=== PATIENT | female | born 1960 | race Two or more races ===

== ENCOUNTER 2019-11-25 07:52 | Inpatient (IN) | payer OTHER ==
[~2019-11-25] VITALS: Ht 157.5 cm; Wt 71.2 kg
[~2019-11-25 07:52] MED LIST: BLOO-129 IN; CLON2TAB11 PO; HUM10VIA SQ; HYDR-4354 PO; HYDR25TA4 PO; QUET300T2 PO; SIMV-49 PO
--- NOTE | 2019-11-25 08:00 | NUR ---
PT [id number] FRM SCHVN C/O ABDOMINAL PAIN W/ N/V/D SINCE LAST NIGHT. PT IS AAOX4, NOT IN RESPIRATORY DISTRESS, HOOKED TO MONITOR, KEPT RESTED AND COMFORTABLE, WILL CONTINUE TO MONITOR.
[2019-11-25] MEDS ORDERED: KETOROLAC TROMETHAMINE 15 MG/ML VIAL ONE (08:12)
[2019-11-25] MEDS ORDERED: FAMOTIDINE/PF INJ 20 MG/2 ML VIAL IV ONE ×2 (08:12→08:30)
[2019-11-25] MEDS ORDERED: ONDANSETRON HCL/PF 4 MG/2 ML VIAL ONE (08:12)
--- NOTE | 2019-11-25 08:15 | NUR ---
SEEN AND EXAMINED BY DR. NY.
[2019-11-25] MEDS ORDERED: ONDANSETRON HCL/PF 4 MG/2 ML VIAL IVP ONE (08:30)
[2019-11-25] MEDS ORDERED: IV NS 0.9% 1,000 ML BAG IV ONE ×2 (08:30→10:30)
[2019-11-25] MEDS ORDERED: KETOROLAC TROMETHAMINE INJ 30 MG/ML VIAL IV ONE (08:30)
--- NOTE | 2019-11-25 08:30 | NUR ---
BLOOD DRAWNED AND SENT TO LAB.
[2019-11-25 08:44] LABS: BASOPHILS # (AUTO) 0.1 /CMM (0.0-0.2); BASOPHILS % (AUTO) 0.3 % (0.0-2.0); HEMATOCRIT 37 % (33-45); HEMOGLOBIN 12.4 g/dL (11.5-14.8); LYMPHOCYTES # (AUTO) 0.6 /CMM (0.8-4.8); LYMPHOCYTES % (AUTO) 3.5 % (20.0-44.0); MEAN CORPUSCULAR HGB CONC 34 g/dl (31.0-36.0); MEAN CORPUSCULAR VOLUME 84 fL (82-100); MONOCYTES # (AUTO) 1.3 /CMM (0.1-1.30); MONOCYTES % (AUTO) 7.5 % (2.0-12.0); NEUTROPHILS # (AUTO) 15.9 /CMM (1.8-8.9); NEUTROPHILS % (AUTO) 88.7 % (43.0-81.0); PLATELET COUNT (AUTO) 173 /CMM (150-450); WHITE BLOOD COUNT (AUTO) 17.9 K/uL (4.3-11.0)
[2019-11-25 08:48] LABS: CALCIUM, SERUM 8.6 mg/dL (8.5-10.1); CREATININE 1.7 mg/dL (0.6-1.3); POTASSIUM 3.5 mmol/L (3.5-5.1)
[2019-11-25 08:55] LABS: ALBUMIN 3.2 g/dL (3.4-5.0); BILIRUBIN,DIRECT 0.2 mg/dL (0.0-0.2); BILIRUBIN,TOTAL 1.2 mg/dL (0.2-1.0); TOTAL PROTEIN, SERUM 7.1 g/dL (6.4-8.2)
--- NOTE | 2019-11-25 08:58 | NUR ---
URINAL GIVEN BUT PT UNABLE TO PROVIDE URINE SPECIMEN THIS TIME.
--- NOTE | 2019-11-25 09:08 | NUR ---
URINE SPECIMEN COLLECTED AND SENT TO LAB.
[2019-11-25 09:16] LABS: APPEARANCE,URINE Clear (CLEAR); BILIRUBIN,URINE Negative (NEGATIVE); BLOOD, URINE Moderate Ery/uL (NEGATIVE); COLOR,URINE Yellow (YELLOW); KETONES,URINE Trace (NEGATIVE); LEUKOCYTE ESTERASE ,URINE Small (NEGATIVE); NITRITE, URINE Negative (NEGATIVE); PROTEIN,URINE 100 mg/dl (NEGATIVE); UGLUCOSE Negative (NEGATIVE); UROBILINOGEN,URINE 0.2 EU/dL (0.2)
[2019-11-25 09:18] LABS: BACTERIA,URINE Few /HPF (None Seen); SQUAMOUS EPITHELIAL CELL,UR Few /HPF (None Seen); URINE AMORPHOUS PHOSPHATES Few /HPF (None Seen)
[2019-11-25] MEDS ORDERED: CEFTRIAXONE 1GM BAG (ER ONLY) 50 ML IV ONE (09:23)
[2019-11-25] MEDS ORDERED: CEFTRIAXONE 1GM BAG (ER ONLY) 1 GM/50 ML PIGGYBACK IV ONE (09:30)
--- NOTE | 2019-11-25 09:40 | NUR ---
CALLED CALL THE [employer] [facility] WILL CALL US BACK WITH AN ETA.
--- NOTE | 2019-11-25 10:01 | NUR ---
SPOKED TO STACY ROBISON OF [facility] TO SEND BACK PT.
--- NOTE | 2019-11-25 10:33 | NUR ---
PT HAS EPISODE OF LOW BP AROUND 80S DR. NY AWARE.
--- NOTE | 2019-11-25 10:36 | NUR ---
PRODUCT LEAD AT BEDSIDE FOR XRAY.
[2019-11-25] MEDS ORDERED: LISI-603 PO (10:42)
[2019-11-25] MEDS ORDERED: TRAZ-182 PO (10:42)
[2019-11-25] MEDS ORDERED: QUET25TA PO (10:42)
[2019-11-25] MEDS ORDERED: IBUP-1955 PO (10:42)
[2019-11-25] MEDS ORDERED: GLIP2.5T3 PO (10:42)
[2019-11-25] MEDS ORDERED: TEMA15CA PO (10:42)
[2019-11-25] MEDS ORDERED: INSU100V3 SQ (10:42)
[2019-11-25] MEDS ORDERED: METF-440 PO (10:42)
[2019-11-25] MEDS ORDERED: METH-406 PO (10:42)
[2019-11-25] MEDS ORDERED: VENL150C2 PO (10:42)
[2019-11-25] MEDS ORDERED: TRAM50TA2 PO (10:42)
[2019-11-25] MEDS ORDERED: LORA-259 PO (10:42)
--- NOTE | 2019-11-25 11:12 | NUR ---
move sheet submitted and asked for tele bed from [facility].
--- NOTE | 2019-11-25 11:20 | NUR ---
saw paged it dr. rios
--- NOTE | 2019-11-25 11:49 | NUR ---
followed up on tele bed working on it
--- NOTE | 2019-11-25 11:52 | NUR ---
DR.SAM JURADO AT BEDSIDE FOR EVAL.
[2019-11-25] MEDS ORDERED: INSULIN REGULAR, HUMAN 100 UNIT/ML 3 ML VIAL SQ PRN (12:00)
[2019-11-25] MEDS ORDERED: MAGNESIUM HYDROXIDE 30 ML UDC PO PRN (12:00)
[2019-11-25] MEDS ORDERED: TEMAZEPAM 15 MG CAPSULE PO PRN (12:00)
[2019-11-25] MEDS ORDERED: MAG HYDROX/AL HYDROX/SIMETH 30 ML UDC PO PRN (12:00)
--- NOTE | 2019-11-25 12:03 | NUR ---
got [facility] bed 113-2
--- NOTE | 2019-11-25 12:19 | NUR ---
REPORT GIVEN TO ENRIQUETA RUTHERFORD FOR ENA
[2019-11-25] MEDS: IV NS 0.9% 1,000 ML IV PRN (12:49)
[2019-11-25 12:50] VITALS: BP 80/54
[2019-11-25] MEDS ORDERED: DEXTROSE 50%-WATER 50 ML DISP.SYRIN IV PRN (13:00)
[2019-11-25] MEDS: METHOCARBAMOL (750MG) 750 MG TABLET PO SCH ×2 (13:42→16:52)
--- NOTE | 2019-11-25 15:37 | NUR ---
RN OPENING NOTE: PATIENT IS A 58 YEAR OLD FEMALE THAT CAME IN FROM THE ER, PREVIOUSLY FROM A [facility] LIV[facility] CALLED LAST HOUSE ON THE BLOCK. PATIENT IS A/OX3, RESPONDS APPROPRIATELY. NO ACUTE DISTRESS NOTED. VERBAL. AMBULATORY. SHE IS ON RA, TOLERATING WELL. NO SOB OR RESPIRATORY DISTRESS NOTED. EYES ARE PERRLA, LUNG SOUNDS CLEAR UPON AUSCULTATION. SKIN INTACT. PATIENT HAS AN IV 20G ON HER RIGHT ARM, FLUSHING WELL. PATIENT C/O NAUSEA AND PAINFUL URINATION. PATIENT HAS BEEN C/O PAIN TO LOWER BACK. WHEN ASKED ABOUT CODE STATUS, PATIENT STATED THAT SHE WANTS TO BE DNR. INFORMED DR FAYE ABOUT COMPLAINTS AND REQUEST FOR CODE STATUS CHANGE AND NEW ORDERS TO CHANGE CODE STATUS. PATIENT ALSO HAS LACTIC ACID OF 2.1, UPON LAB RE-DRAW, LACTIC ACID WAS 2.7. DR FAYE NOTIFIED, NO NEW ORDER OF NOW. PATIENT IS ON TELE MONITOR WITH SINUS RHYTHM. ATTAIN TO PATIENT NEEDS. SAFETY MEASURES IMPLEMENTED W/ BED IN LOWEST POSITION, LOCKED, SIDE RAILS UP X2, AND CALL LIGHT WITHIN REACH. WILL CONTINUE TO MONITOR PATIENT FOR ANY CHANGES.
[2019-11-25 16:00] VITALS: BP 140/80
[2019-11-25] MEDS: QUETIAPINE FUMARATE 25 MG TABLET PO SCH (16:52)
[2019-11-25] MEDS: ONDANSETRON HCL/PF 4 MG/2 ML VIAL IVP PRN (16:54)
[2019-11-25] MEDS ORDERED: METFORMIN 500 MG TABLET PO SCH (17:00)
[2019-11-25] MEDS: BLOOD SUGAR DIAGNOSTIC 1 EACH STRIP IN SCH ×2 (17:03→21:38)
--- NOTE | 2019-11-25 17:45 | NUR ---
RN NOTES PATIENT REFUSED DINNER TRAY, 1730 ACCUCHECK WAS 183, INSULIN WAS NOT GIVEN. WILL CONTINUE TO MONITOR FOR ANY CHANGES.
[2019-11-25] MEDS: ACETAMINOPHEN 325 MG TABLET PO PRN (18:30)
--- NOTE | 2019-11-25 19:21 | NUR ---
RN CLOSING NOTE: PATIENT IS RESTING IN BED WITH NO ACUTE CHANGES NOTED. VSS. PATIENT NEEDS HAVE BEEN MET. PATIENT'S ON SINUS RHYTHM. IV LINE PATENT AND INFUSING WELL. SAFETY MEASURES HAVE BEEN IMPLEMENTED, CALL LIGHT WITHIN REACH, BED IN LOWEST AND LOCKED POSITION, SIDE RAILS UP X2. PATIENT HAS BEEN ENDORSED TO ONCOMING SHIFT FOR CONTINUITY OF CARE.
[2019-11-25 20:00] VITALS: BP 86/52
[2019-11-25] MEDS: QUETIAPINE FUMARATE 100 MG TABLET PO SCH (21:29)
[2019-11-25] MEDS: TRAZODONE 50 MG TABLET PO SCH (21:30)
[2019-11-25] MEDS: INSULIN REGULAR, HUMAN 100 UNIT/ML 3 ML VIAL SQ PRN (21:36)
[2019-11-26] VITALS: BP_SYST 83; BP_DIAS 44; BP_DIAS 46
[2019-11-26] MEDS: IV NS 0.9% 1,000 ML IV PRN ×2 (00:10→23:35)
[2019-11-26] MEDS: ZOLPIDEM TARTRATE 5 MG TABLET PO PRN (00:31)
[2019-11-26 04:00] VITALS: BP 81/47
[2019-11-26] MEDS ORDERED: IV NS 0.9% 500 ML IV ONE (06:30)
[2019-11-26] MEDS: LORAZEPAM 1 MG TABLET PO PRN (06:48)
--- NOTE | 2019-11-26 07:15 | NUR ---
RN OPENING NOTE: RECEIVED PATIENT IN BED. AWAKE AND ORIENTED X4. ON ROOM AIR BEING TOLERATED WELL. NO SOB AND RESPIRATORY DISTRESS NOTED. O2 SATURATION >92%. RAC G20 SITE CLEAN, DRY AND PATENT WITH IV INFUSION OF NS @75MLS/HR INFUSING WELL. TELE MONITORING SHOWING SINUS RHYTHM NOTED. LOWER BACK PAIN REPORTED WITH NORCO REQUESTED BY PATIENT PAIN RELIEF. SAFETY ENSURED AND OBSERVED. BED LOCKED, LOW AND AT SEMI-ESTRADA'S POSITION. CALL LIGHT IN REACH. SIDE RAILS UP X3. WILL CONTINUE TO MONITOR.
--- NOTE | 2019-11-26 07:40 | NUR ---
RN NOTES PATIENT AWAKE, ALERT AND VERBALLY ABLE TO COMMUNICATE NEEDS. NO SIGNIFICANT CHANGE OF CONDITION. VITAL SIGNS WITHIN NORMAL LIMITS. NO COMPLAINT OF PAIN OR DISCOMFORT. REQUESTED AMBIEN FOR SLEEP, GIVEN WITH HELP. PATIENT ALSO REQUESTED ATIVAN FOR ANXIETY, GIVEN WITH RELIEF. KEPT CLEAN AND DRY. ENDORSE TO NEXT SHIFT FOR CONTINUITY OF CARE.
[2019-11-26] MEDS: PANTOPRAZOLE 40 MG TABLET.DR PO SCH (07:58)
[2019-11-26] MEDS: HYDROCODONE/APAP 5/325MG 1 EACH TABLET PO PRN ×3 (07:59→21:28)
[2019-11-26] MEDS: BLOOD SUGAR DIAGNOSTIC 1 EACH STRIP IN SCH ×4 (07:59→21:57)
[2019-11-26 08:00] VITALS: BP 113/62
[2019-11-26] MEDS: NICOTINE PATCH (14MG) 14 MG PATCH.TD24 TD SCH (09:46)
[2019-11-26] MEDS: QUETIAPINE FUMARATE 25 MG TABLET PO SCH ×3 (09:46→21:24)
[2019-11-26] MEDS: VENLAFAXINE XR 150 MG CAP.SR.24H PO SCH (09:46)
[2019-11-26] MEDS: METHOCARBAMOL (750MG) 750 MG TABLET PO SCH ×3 (09:47→17:58)
[2019-11-26] MEDS: glipiZIDE XL 2.5 MG TAB.OSM.24 PO SCH (09:47)
[2019-11-26] MEDS: INSULIN REGULAR, HUMAN 100 UNIT/ML 3 ML VIAL SQ PRN ×4 (09:59→21:22)
--- NOTE | 2019-11-26 09:59 | NUR ---
RN NOTE: PATIENT REFUSED INSULIN DOSE PER SLIDING SCALE DUE TO INADEQUATE FOOD INTAKE. IV SITE WAS PULLED OUT EARLIER AND PATIENT REQUESTED TO EAT BEFORE INSERTING A NEW LINE. OFFERED TO INSERT IT BUT PATIENT DEFERRED AT THE MOMENT AND INSTRUCTED NURSE TO TRY AGAIN LATER.
--- NOTE | 2019-11-26 11:00 | NUR ---
RN NOTE: OFFERED TO INSERT IV LINE FOR PATIENT FOR IV MEDICATION THAT WAS DUE AT 1000. PATIENT DECLINED AT THIS MOMENT "SHE WANTS TO REST HER HANDS FROM THE POKING" AND STATED THAT RN CAN RESTART IV LINE LATER AFTER LUNCH. MD INFORMED ABOUT SITUATION. IV ANTIBIOTIC TO BE ADMINISTERED LATE.
[2019-11-26 11:27] LABS: APPEARANCE,URINE SL CLOUDY (CLEAR); BILIRUBIN,URINE NEGATIVE (NEGATIVE); BLOOD, URINE SMALL Ery/uL (NEGATIVE); COLOR,URINE YELLOW (YELLOW); KETONES,URINE NEGATIVE (NEGATIVE); LEUKOCYTE ESTERASE ,URINE SMALL (NEGATIVE); NITRITE, URINE NEGATIVE (NEGATIVE); PROTEIN,URINE 30 mg/dl (NEGATIVE); UGLUCOSE NEGATIVE (NEGATIVE); UROBILINOGEN,URINE 0.2 EU/dL (0.2)
[2019-11-26 11:54] LABS: CREATININE, URINE 110.6 MG/DL (30.0-125.0); URINE TOTAL PROTEIN 104.8 mg/dL (0-11.9)
--- NOTE | 2019-11-26 12:13 | NUR ---
PT ASSIGNMENT GIVEN TO ME BY CHARGE NURSE ROSEANN FROM [facility] BEDSIDE [facility]URSE. PT PIV FELL OUT NEEDS TO BE REPLACED IN REPORT PT STATED THAT SHE NEEDED A BRAKE FROM NEEDLE POKES [facility] WILL TRY TO REPLACE PIV.
[2019-11-26 12:27] LABS: BACTERIA,URINE Many /HPF (None Seen); RBC,URINE 0-2 /HPF (0-2); SQUAMOUS EPITHELIAL CELL,UR Moderate /HPF (None Seen)
[2019-11-26 13:21] LABS: EOSINOPHIL,URINE None Seen
[2019-11-26] MEDS: CEFTRIAXONE 1 G in IV D5W 50 ML IV SCH (14:05)
[2019-11-26 16:00] VITALS: BP 115/53
--- NOTE | 2019-11-26 18:55 | NUR ---
RN CLOSING NOTE: PATIENT IN BED. AWAKE AND ORIENTED X4. ON ROOM AIR BEING TOLERATED WELL. NO SOB AND RESPIRATORY DISTRESS NOTED. O2 SATURATION >92%. LEFT HAND G22 IV CLEAN, DRY AND PATENT WITH IV INFUSION OF NS @75MLS/HR INFUSING WELL. PAIN MANAGEMENT FOR LOWER BACK PAIN WITH NORCO 5/325 DONE THROUGHOUT SHIFT FOR PATIENT. SAFETY ENSURED AND OBSERVED. BED LOCKED, LOW AND AT SEMI-ESTRADA'S POSITION. CALL LIGHT IN REACH. SIDE RAILS UP X3. WILL CONTINUE TO MONITOR. WILL ENDORSE TO NIGHT NURSE FOR ENA.
--- NOTE | 2019-11-26 19:10 | NUR ---
MS RN OPENING NOTES: RECEIVED PATIENT RESTING IN BED, A/O X4. NO COMPLAIN OF PAIN. NO SOB NOTED. CALL LIGHT WITHIN REACH. BED IN LOWEST AND LOCKED POSITION.
[2019-11-26 20:00] VITALS: BP 156/72
--- NOTE | 2019-11-26 20:40 | NUR ---
V/S TAKEN BY CHAITANYA PLASENCIA, RECORDED.
[2019-11-26] MEDS: TRAZODONE 50 MG TABLET PO SCH (21:24)
[2019-11-26] MEDS: QUETIAPINE FUMARATE 100 MG TABLET PO SCH (21:42)
[2019-11-27 04:00] VITALS: BP 135/61
[2019-11-27] MEDS: HYDROCODONE/APAP 5/325MG 1 EACH TABLET PO PRN ×2 (05:35→14:17)
[2019-11-27] MEDS: QUETIAPINE FUMARATE 25 MG TABLET PO SCH ×2 (05:36→16:38)
--- NOTE | 2019-11-27 06:04 | NUR ---
MS RE CLOSING NOTES: PATIENT IS RESTING IN BED, A/O X4. NO SOB. MEDICATED WITH NORCO FOR PAIN AT 2128 AND 0539. RESTED THROUGHOUT THE NIGHT. CALL LIGHT WITHIN REACH. BED IN LOWEST AND LOCKED POSITION. PATIENT REQUESTED TO TAKE HER 0900 SCHEDULED SEROQUEL 50MG, GIVEN. ACCORDING TO THE PATIENT SHE NORMALLY TAKE IT AT 0500. WILL ENDORSE TO THE NEXT SHIFT RN AND WILL INFORM THE PHARMACY TODAY.
[2019-11-27 06:28] LABS: BASOPHILS % (AUTO) 0.2 % (0.0-2.0); EOSINOPHILS % (AUTO) 1.3 % (0.0-6.0); HEMATOCRIT 29 % (33-45); HEMOGLOBIN 9.8 g/dL (11.5-14.8); LYMPHOCYTES # (AUTO) 0.5 /CMM (0.8-4.8); LYMPHOCYTES % (AUTO) 9.4 % (20.0-44.0); MEAN CORPUSCULAR HGB CONC 34 g/dl (31.0-36.0); MEAN CORPUSCULAR VOLUME 84 fL (82-100); MONOCYTES # (AUTO) 0.4 /CMM (0.1-1.30); MONOCYTES % (AUTO) 8.4 % (2.0-12.0); NEUTROPHILS # (AUTO) 3.8 /CMM (1.8-8.9); NEUTROPHILS % (AUTO) 80.7 % (43.0-81.0); PLATELET COUNT (AUTO) 105 /CMM (150-450); RED BLOOD CELL COUNT(AUTO) 3.41 MIL/uL (4.0-5.2); WHITE BLOOD COUNT (AUTO) 4.8 K/uL (4.3-11.0)
[2019-11-27 06:40] LABS: ALBUMIN 2.2 g/dL (3.4-5.0); BILIRUBIN,TOTAL 0.5 mg/dL (0.2-1.0); CALCIUM, SERUM 7.9 mg/dL (8.5-10.1); CREATININE 0.9 mg/dL (0.6-1.3); MAGNESIUM 1.4 mg/dL (1.8-2.4); POTASSIUM 3.2 mmol/L (3.5-5.1); TOTAL PROTEIN, SERUM 5.7 g/dL (6.4-8.2)
[2019-11-27 06:49] LABS: THYROID STIMULATING HORMONE 0.796 uIU/mL (0.358-3.74)
--- NOTE | 2019-11-27 07:26 | NUR ---
CALLED THE PHARMACY AND TALKED TO JULIUS REGARDING THE SEROQUEL 50 MG. ENRIQUETA VELOZ.
--- NOTE | 2019-11-27 07:27 | NUR ---
MS RN OPENING NOTE PATIENT IN BED RESTING COMFORTABLY. PATIENT IN NO ACUTE DISTRESS. NO SOB NOTED. PATIENT BREATHING IS EVEN AND UNLABORED. PATIENT IN NO PAIN AT THIS TIME. SAFETY PRECAUTIONS IN PLACE. PATIENT BED IS LOCKED AND IN LOWEST POSITION. CALL LIGHT WITHIN REACH. WILL CONTINUE TO MONITOR.
[2019-11-27] MEDS: BLOOD SUGAR DIAGNOSTIC 1 EACH STRIP IN SCH ×4 (07:49→22:53)
[2019-11-27] MEDS: PANTOPRAZOLE 40 MG TABLET.DR PO SCH (07:49)
[2019-11-27] MEDS: INSULIN REGULAR, HUMAN 100 UNIT/ML 3 ML VIAL SQ PRN ×3 (07:51→22:49)
[2019-11-27 08:00] VITALS: BP 88/53
[2019-11-27] MEDS ORDERED: POTASSIUM CHLORIDE 20 MEQ TAB.PRT.SR PO SCH (08:00)
[2019-11-27] MEDS ORDERED: K PHOS NEUTRAL 250 MG TABLET PO ONE (08:30)
[2019-11-27 08:44] VITALS: BP 110/62
[2019-11-27] MEDS: VENLAFAXINE XR 150 MG CAP.SR.24H PO SCH (08:56)
[2019-11-27] MEDS: LORAZEPAM 1 MG TABLET PO PRN ×2 (08:56→18:52)
[2019-11-27] MEDS: glipiZIDE XL 2.5 MG TAB.OSM.24 PO SCH (08:56)
[2019-11-27] MEDS: METHOCARBAMOL (750MG) 750 MG TABLET PO SCH ×3 (08:56→16:39)
[2019-11-27] MEDS: NICOTINE PATCH (14MG) 14 MG PATCH.TD24 TD SCH (08:57)
[2019-11-27] MEDS: Magnesium 1GM/D5W 100ML PREMIX 100 ML IV SCH ×4 (08:57→12:46)
[2019-11-27] MEDS: CEFTRIAXONE 1 G in IV D5W 50 ML IV SCH (11:00)
[2019-11-27] MEDS: ONDANSETRON HCL/PF 4 MG/2 ML VIAL IVP PRN (11:41)
[2019-11-27 16:00] VITALS: BP_SYST 145; BP_SYST 158; BP_DIAS 56; BP_DIAS 63
--- NOTE | 2019-11-27 16:37 | NUR ---
MS RN NOTE PATIENT BLOOD SUGAR IS 102. NO INSULIN COVERAGE PER PROTOCOL.
[2019-11-27] MEDS: ACETAMINOPHEN 325 MG TABLET PO PRN (16:38)
--- NOTE | 2019-11-27 17:11 | NUR ---
MS RN NOTE PATIENT TEMPERATURE WAS 99.9. ADMINISTERED TYLENOL 650 MG AND APPLIED COOLING MEASURES. RECHECKED TEMPERATURE AND TEMPERATURE IS 98.1. PATIENT IN NO ACUTE DISTRESS. NO SOB NOTED. WILL CONTINUE TO MONITOR.
[2019-11-27 17:13] VITALS: BP 136/74
[2019-11-27] MEDS: IV NS 0.9% 1,000 ML IV PRN (18:12)
--- NOTE | 2019-11-27 18:31 | NUR ---
MS RN CLOSING NOTE PATIENT IN BED RESTING COMFORTABLY. PATIENT IN NO ACUTE DISTRESS. NO SOB NOTED. PATIENT BREATHING IS EVEN AND UNLABORED. PATIENT IN NO PAIN AT THIS TIME. IV PATENT AND INTACT. PATIENT SAFETY PRECAUTIONS IN PLACE. PATIENT KEPT CLEAN, DRY, AND COMFORTABLE THROUGHOUT SHIFT. PATIENT BED IS LOCKED AND IN LOWEST POSITION. CALL LIGHT WITHIN REACH. WILL ENDORSE CARE TO PM SHIFT FOR ENA.
[2019-11-27 20:00] VITALS: BP 116/69
[2019-11-27] MEDS: QUETIAPINE FUMARATE 100 MG TABLET PO SCH (22:46)
[2019-11-27] MEDS: ZOLPIDEM TARTRATE 5 MG TABLET PO PRN (22:46)
[2019-11-27] MEDS: TRAZODONE 50 MG TABLET PO SCH (22:47)
[2019-11-28 04:00] VITALS: BP 114/71
[2019-11-28] MEDS: QUETIAPINE FUMARATE 25 MG TABLET PO SCH (04:53)
[2019-11-28] MEDS: IV NS 0.9% 1,000 ML IV PRN (06:37)
[2019-11-28] MEDS: HYDROCODONE/APAP 5/325MG 1 EACH TABLET PO PRN ×2 (06:44→12:01)
--- NOTE | 2019-11-28 07:14 | NUR ---
RN NOTES PATIENT IN BED WITH NO DISTRESS NOTED. BREATHING EVEN AND UNLABORED. ON ROOM AIR WELL TOLERATED. ALERT AND ORIENTED. VERBALLY ABLE TO COMMUNICATE NEEDS. COMPLAINED OF BACK PAIN, NORCO GIVEN 2X WITH RELIEF. NO SIGNIFICANT CHANGE OF CONDITION. WILL ENDORSE TO NEXT SHIFT FOR CONTINUITY OF CARE
[2019-11-28 08:00] VITALS: BP_SYST 113; BP_SYST 133; BP_DIAS 78
--- NOTE | 2019-11-28 08:00 | NUR ---
MS1/RN AM SHIFT OPENING NOTES RECEIVED PT AWAKE IN BED, PT A/O X 4, NO ACUTE CHANGE OF CONDITION NOTED, PT DENIES ANY SYMPTOMS OR PAIN. ON ROOM AIR @ 94%, LUNG SOUNDS CLEAR. VITAL SIGNS WITHIN NORMAL RANGE. WITH ON GOING IV INFUSION OF NS @ 75CC/HR, IV SITE PATENT WITH NO S/S OF INFECTION. PT IS COMFORTABLE, PLAN OF CARE REVIEWED WITH PT, CL WITHIN REACHED AND SAFETY MAINTAINED. ON GOING MONITORING. ON GOING MONITORING.
[2019-11-28] MEDS: BLOOD SUGAR DIAGNOSTIC 1 EACH STRIP IN SCH ×2 (08:01→11:54)
[2019-11-28] MEDS: METHOCARBAMOL (750MG) 750 MG TABLET PO SCH ×2 (08:17→12:00)
[2019-11-28] MEDS: PANTOPRAZOLE 40 MG TABLET.DR PO SCH (08:17)
[2019-11-28] MEDS: NICOTINE PATCH (14MG) 14 MG PATCH.TD24 TD SCH (08:17)
[2019-11-28] MEDS: VENLAFAXINE XR 150 MG CAP.SR.24H PO SCH (08:17)
[2019-11-28] MEDS: glipiZIDE XL 2.5 MG TAB.OSM.24 PO SCH (08:17)
[2019-11-28] MEDS: INSULIN REGULAR, HUMAN 100 UNIT/ML 3 ML VIAL SQ PRN ×2 (08:19→11:56)
[2019-11-28 10:26] LABS: CALCIUM, SERUM 7.9 mg/dL (8.5-10.1); CREATININE 0.9 mg/dL (0.6-1.3); MAGNESIUM 1.3 mg/dL (1.8-2.4); PHOSPHORUS 2.6 mg/dL (2.5-4.9); POTASSIUM 3.3 mmol/L (3.5-5.1)
[2019-11-28] MEDS: CEFTRIAXONE 1 G in IV D5W 50 ML IV SCH (10:26)
[2019-11-28] MEDS: LORAZEPAM 1 MG TABLET PO PRN (10:30)
[2019-11-28] MEDS ORDERED: CEPH-570 PO (13:32)
--- NOTE | 2019-11-28 15:14 | NUR ---
MS1/RN AFTERNOON ROUNDS NO CHANGE OF CONDITION. MONITORING CONTINUED.
--- NOTE | 2019-11-28 15:59 | NUR ---
MS1/DOUGH CUTTING MACHINE OPERATOR DISCHARGE INSTRUCTIONS AND DOCUMENTS GIVEN TO PT, VERBALIZED UNDERSTANDING. IV SITE REMOVED, PRESSURE DRESSING APPLIED, NO S/S OF INFECTION. PERSONAL BELONGINGS RETURNED TO PT, INVENTORY LOG SIGNED OFF. PT LEFT MS1 UNIT IN A WHEELCHAIR ACCOMPANIED BY SANITATION WORKER TO AN AWAITING LIFT TRANSPORT.
[2019-11-28 16:00] VITALS: BP 113/78
[2019-11-29 07:11] LABS: PTH, INTACT 32 pg/mL (15-65)
[2019-11-30 15:14] LABS: *SPE A/G RATIO 0.9 (0.7-1.7); *SPE ALBUMIN 2.3 g/dL (2.9-4.4); *SPE ALPHA-1-GLOBULIN 0.3 g/dL (0.0-0.4); *SPE BETA GLOBULIN 0.8 g/dL (0.7-1.3); *SPE GLOBULIN, TOTAL 2.7 g/dL (2.2-3.9); *SPE M-SPIKE Not Observed g/dL (Not Observed); *SPEGAMMA GLOBULIN 0.5 g/dL (0.4-1.8)
== END 2019-11-28 16:04 | disposition home or self-care (01) | DRG 720 ==
LOC: ER 07:55 → TELE1 12:06 → MEDSG1 11-26 10:30
DX: A41.9 Sepsis, unspecified organism (principal); N17.0 Acute kidney failure with tubular necrosis; E87.1 Hypo-osmolality and hyponatremia; B19.10 Unspecified viral hepatitis B without hepatic coma; N39.0 Urinary tract infection, site not specified; J45.909 Unspecified asthma, uncomplicated; I10 Essential (primary) hypertension; B19.20 Unspecified viral hepatitis C without hepatic coma; E86.1 Hypovolemia; G89.29 Other chronic pain; R65.20 Severe sepsis without septic shock; F31.9 Bipolar disorder, unspecified; Z79.4 Long term (current) use of insulin; E11.65 Type 2 diabetes mellitus with hyperglycemia; Z72.0 Tobacco use; Z79.84 Long term (current) use of oral hypoglycemic drugs
CPT/HCPCS: 36415; 71045-TC; 80048-TC; 80053-TC; 80061-TC; 80076-TC; 81000-TC; 82550-TC; 82570-TC; 82962-TC; 83605-TC; 83690-TC; 83735-TC; 83970; 84100-TC; 84155; 84155-TC; 84165; 84300-TC; 84443-TC; 85025-TC; 87040-TC; 87081-TC; 87086-TC; G0378; J0696; J1815; J1885; J2405; J3475; J3490; J7030; J7060